=== PATIENT | female | born 1990 | race Caucasian/White ===

== ENCOUNTER 2017-05-09 09:59 | Inpatient (IN) | payer OTHER ==
[2017-05-09 11:22] LABS: ADD UMIC YES; UR ASCORBIC ACID NEGATIVE (NEGATIVE); UR BACTERIA FEW /HPF (NONE SEEN); UR BILIRUBIN (Dip) NEGATIVE (NEGATIVE); UR BLOOD (Dip) NEGATIVE (NEGATIVE); UR CLARITY CLOUDY (CLEAR); UR COLOR YELLOW (YELLOW); UR GLUCOSE (Dip) NEGATIVE (NEGATIVE); UR KETONES (Dip) NEGATIVE (NEGATIVE); UR LEUKOCYTE ESTERASE (Dip) 2+ Leu/ul (NEGATIVE); UR NITRITE (Dip) NEGATIVE (NEGATIVE); UR RBC 1 /HPF (0-5); UR SPECIFIC GRAVITY (Dip) 1.017 (1.003-1.030); UR SQUAMOUS EPITHELIAL CELL MANY /HPF (FEW); UR TOTAL PROTEIN (Dip) 1+ mg/dl (NEGATIVE); UR UROBILINOGEN (Dip) NEGATIVE (NEGATIVE); UR WBC 9 /HPF (0-5)
[2017-05-09] MEDS: BETAMET NA PHOS/AC(6 MG/ML) 5ML INJ IM (11:57)
[2017-05-09 12:00] LABS: INR 0.86; PROTIME 11.8 Sec (11.9-14.9); PT RATIO 0.9
[2017-05-09 12:01] LABS: PARTIAL THROMBOPLASTIN TIME 27.5 Sec (25.0-35.0)
[2017-05-09 12:05] LABS: ALANINE AMINOTRANSFERASE 33 IU/L (13-69); ALBUMIN 3.9 g/dl (3.3-4.9); ALBUMIN/GLOBULIN RATIO 1.21; ALKALINE PHOSPHATASE 180 IU/L (42-121); ANION GAP 14 (8-16); ASPARTATE AMINO TRANSFERASE 23 IU/L (15-46); BLOOD UREA NITROGEN 17 mg/dl (7-20); CALCIUM 9.6 mg/dl (8.4-10.2); CARBON DIOXIDE 23 mmol/L (21-31); CHLORIDE 108 mmol/L (97-110); CREATININE 0.69 mg/dl (0.44-1.00); GLUCOSE 79 mg/dl (70-220); POTASSIUM 4.3 mmol/L (3.5-5.1); SODIUM 141 mmol/L (135-144); TOTAL PROTEIN 7.1 g/dl (6.1-8.1); URIC ACID 5.9 mg/dl (3.1-7.9)
[2017-05-09 12:27] LABS: ADD MAN DIFF? NO
[2017-05-09 12:32] LABS: BASOPHILS % 0.3 % (0.0-2.0); EOSINOPHILS # 0.3 10^3/ul (0.0-0.5); EOSINOPHILS % 2.5 % (0.0-7.0); HEMATOCRIT 36.4 % (37.0-47.0); HEMOGLOBIN 12.1 g/dl (12.0-16.0); LYMPHOCYTES # 1.8 10^3/ul (0.8-2.9); LYMPHOCYTES % 18.4 % (15.0-51.0); MEAN CORPUSCULAR HEMOGLOBIN 30.6 pg (29.0-33.0); MEAN CORPUSCULAR HGB CONC 33.2 g/dl (32.0-37.0); MEAN CORPUSCULAR VOLUME 91.9 fl (82.0-101.0); MEAN PLATELET VOLUME 10.5 fl (7.4-10.4); MONOCYTE # 0.6 10^3/ul (0.3-0.9); MONOCYTES % 6.1 % (0.0-11.0); NEUTROPHIL # 7.3 10^3/ul (1.6-7.5); NEUTROPHILS % 72.3 % (39.0-77.0); PLATELET COUNT 231 10^3/UL (140-415); RED BLOOD COUNT 3.96 10^6/ul (4.20-5.40)
[2017-05-09] MEDS: MAGNESIUM SULFATE 4 GM/100 ML 100 ML IV (13:58)
[2017-05-09] MEDS: MAGNESIUM SULFATE 20 GM/500 ML 500 ML IV (14:12)
[2017-05-09] MEDS: LACTATED RINGER'S 1,000 ML IV ×2 (14:13→23:21)
[2017-05-09] MEDS ORDERED: CA GLUCONATE (GM) 10% 10ML INJ IV (21:30)
[2017-05-10 00:23] LABS: HEPATITIS B SURFACE ANTIGEN NEGATIVE (NEGATIVE)
[2017-05-10] MEDS: MAGNESIUM SULFATE 20 GM/500 ML 500 ML IV ×3 (00:33→22:34)
[2017-05-10 01:11] LABS: MAGNESIUM 5.9 mg/dl (1.7-2.5)
[2017-05-10 10:07] LABS: MAGNESIUM 6.7 mg/dl (1.7-2.5)
[2017-05-10] MEDS: LACTATED RINGER'S 1,000 ML IV (11:34)
[2017-05-10] MEDS: BETAMET NA PHOS/AC(6 MG/ML) 5ML INJ IM (12:05)
[2017-05-10 13:11] LABS: MAGNESIUM 6.5 mg/dl (1.7-2.5)
[2017-05-10 18:24] LABS: COLLECTION PERIOD 24 hrs
[2017-05-10 18:43] LABS: VOLUME 3975 mls
[2017-05-10 18:46] LABS: CREATININE,URINE RANDOM 36.72 mg/dl (20-320)
[2017-05-10 18:47] LABS: COLLECTION PERIOD 24 hrs; CREATININE CLEARANCE 146.9 mls/min (84.0-162.0); SCRET 0.69 mg/dl (0.44-1.00); VOLUME 3975 ml/24hrs
[2017-05-10 19:12] LABS: MAGNESIUM 6.9 mg/dl (1.7-2.5)
[2017-05-11] MEDS: LACTATED RINGER'S 1,000 ML IV ×5 (00:46→21:03)
[2017-05-11 01:12] LABS: MAGNESIUM 7.1 mg/dl (1.7-2.5)
[2017-05-11] MEDS ORDERED: MAGNESIUM SULFATE 20 GM/500 ML 500 ML IV (01:26)
[2017-05-11 06:42] LABS: ADD MAN DIFF? NO
[2017-05-11 06:53] LABS: BASOPHILS % 0.1 % (0.0-2.0); HEMATOCRIT 33.7 % (37.0-47.0); HEMOGLOBIN 11.2 g/dl (12.0-16.0); LYMPHOCYTES # 1.5 10^3/ul (0.8-2.9); LYMPHOCYTES % 15.3 % (15.0-51.0); MEAN CORPUSCULAR HEMOGLOBIN 30.2 pg (29.0-33.0); MEAN CORPUSCULAR HGB CONC 33.2 g/dl (32.0-37.0); MEAN CORPUSCULAR VOLUME 90.8 fl (82.0-101.0); MONOCYTE # 0.5 10^3/ul (0.3-0.9); MONOCYTES % 5.1 % (0.0-11.0); NEUTROPHIL # 7.7 10^3/ul (1.6-7.5); NEUTROPHILS % 78.9 % (39.0-77.0); PLATELET COUNT 245 10^3/UL (140-415); RED BLOOD COUNT 3.71 10^6/ul (4.20-5.40); RED CELL DISTRIBUTION WIDTH 13.4 % (11.5-14.5)
[2017-05-11 06:53] LABS: WHITE BLOOD COUNT 9.8 10^3/ul (4.8-10.8)
[2017-05-11 07:23] LABS: MAGNESIUM 7.1 mg/dl (1.7-2.5)
[2017-05-11 07:28] LABS: ALANINE AMINOTRANSFERASE 51 IU/L (13-69); ALBUMIN 3.5 g/dl (3.3-4.9); ALBUMIN/GLOBULIN RATIO 1.02; ALKALINE PHOSPHATASE 186 IU/L (42-121); ANION GAP 12 (8-16); ASPARTATE AMINO TRANSFERASE 38 IU/L (15-46); BLOOD UREA NITROGEN 14 mg/dl (7-20); CARBON DIOXIDE 22 mmol/L (21-31); CHLORIDE 106 mmol/L (97-110); CREATININE 0.68 mg/dl (0.44-1.00); GLUCOSE 123 mg/dl (70-220); SODIUM 136 mmol/L (135-144); TOTAL PROTEIN 6.9 g/dl (6.1-8.1)
[2017-05-11 07:47] LABS: HEPATITIS B SURFACE ANTIGEN NEGATIVE (NEGATIVE)
[2017-05-11] MEDS ORDERED: METHYLERGONOVINE 0.2 MG INJ IM ×2 (10:30→23:00)
[2017-05-11] MEDS ORDERED: OXYTOCIN 30 UNITS/LR 500 ML IV ×2 (10:30→23:00)
[2017-05-11] MEDS ORDERED: BUTORPHANOL 2 MG INJ IV (10:30)
[2017-05-11] MEDS ORDERED: MISOPROSTOL 200 MCG TAB PR ×2 (10:30→23:00)
[2017-05-11] MEDS ORDERED: HYDROCODONE/APAP (5/325) TAB PO (10:30)
[2017-05-11] MEDS ORDERED: LIDOCAINE 1% (MPF) 30 ML INJ INJ (10:30)
[2017-05-11] MEDS ORDERED: IBUPROFEN 600 MG TAB PO (10:30)
[2017-05-11] MEDS: AMPICILLIN 2 GM/NS (PMX) 100 ML IV (11:16)
[2017-05-11 11:42] LABS: INR 0.92; PROTIME 12.4 Sec (11.9-14.9)
[2017-05-11 11:43] LABS: PARTIAL THROMBOPLASTIN TIME 24.6 Sec (25.0-35.0)
[2017-05-11] MEDS: BETAMET NA PHOS/AC(6 MG/ML) 5ML INJ IM (12:00)
[2017-05-11] MEDS: OXYTOCIN 30 UNITS/LR 500 ML IV ×4 (12:18→22:57)
[2017-05-11] MEDS: AMPICILLIN 1 GM/NS (PMX) 50 ML IV ×3 (14:51→22:30)
[2017-05-11] MEDS: CITRIC ACID/SODIUM CITRATE 15 ML CUP PO (19:09)
[2017-05-11] MEDS ORDERED: ONDANSETRON 4 MG INJ (19:17)
[2017-05-11] MEDS ORDERED: KETOROLAC 30 MG INJ (19:17)
[2017-05-11] MEDS ORDERED: morphine SULFATE/PF (10 MG/10 ML) INJ (19:17)
[2017-05-11] MEDS ORDERED: GLYCOPYRROLATE 0.4 MG INJ (19:17)
[2017-05-11] MEDS ORDERED: METOCLOPRAMIDE 10 MG INJ (19:18)
[2017-05-11] MEDS ORDERED: FENTAnyl 50 MCG/ML VIAL (20:00)
[2017-05-11] MEDS ORDERED: PROPOFOL 20 ML (20:18)
[2017-05-11] MEDS ORDERED: LIDOCAINE 2% (SDV) 5 ML INJ (20:25)
[2017-05-11] MEDS: CARBOPROST 250 MCG INJ IM (21:04)
[2017-05-11] MEDS: CEFAZOLIN 2 GM/50 ML (PMX) 50 ML IV (21:04)
[2017-05-11] MEDS ORDERED: morphine 2 MG INJ IV ×3 (21:30)
[2017-05-11] MEDS ORDERED: NALOXONE (0.4 MG/ML) INJ IV (21:30)
[2017-05-11] MEDS ORDERED: morphine (1 MG/ML) 10ML SYRINGE IV ×3 (21:30)
[2017-05-11] MEDS ORDERED: ONDANSETRON 4 MG INJ IV ×2 (21:30)
[2017-05-11] MEDS ORDERED: DIPHENHYDRAMINE 50 MG INJ IV (21:30)
[2017-05-11] MEDS ORDERED: CARBOPROST 250 MCG INJ IM (23:00)
[2017-05-11] MEDS ORDERED: NA PHOSPHATE/BIPHOS 133 ML ENEMA PR (23:00)
[2017-05-11] MEDS ORDERED: NACL 0.9% 3 ML SYG IV (23:00)
[2017-05-12] MEDS: KETOROLAC 30 MG INJ IV (04:26)
[2017-05-12] MEDS: LACTATED RINGER'S 1,000 ML IV ×2 (05:29→22:57)
[2017-05-12] MEDS ORDERED: LACTATED RINGER'S 500 ML IV (10:30)
[2017-05-12 13:55] LABS: ADD MAN DIFF? NO
[2017-05-12 13:56] LABS: BASOPHILS % 0.2 % (0.0-2.0); HEMATOCRIT 28.9 % (37.0-47.0); HEMOGLOBIN 9.4 g/dl (12.0-16.0); LYMPHOCYTES # 2.2 10^3/ul (0.8-2.9); LYMPHOCYTES % 20.1 % (15.0-51.0); MEAN CORPUSCULAR HEMOGLOBIN 30.4 pg (29.0-33.0); MEAN CORPUSCULAR HGB CONC 32.5 g/dl (32.0-37.0); MEAN CORPUSCULAR VOLUME 93.5 fl (82.0-101.0); MEAN PLATELET VOLUME 9.3 fl (7.4-10.4); MONOCYTE # 0.7 10^3/ul (0.3-0.9); MONOCYTES % 6.8 % (0.0-11.0); NEUTROPHIL # 7.8 10^3/ul (1.6-7.5); NEUTROPHILS % 72.6 % (39.0-77.0); PLATELET COUNT 171 10^3/UL (140-415); RED BLOOD COUNT 3.09 10^6/ul (4.20-5.40); RED CELL DISTRIBUTION WIDTH 13.4 % (11.5-14.5)
[2017-05-12 13:56] LABS: WHITE BLOOD COUNT 10.7 10^3/ul (4.8-10.8)
[2017-05-12 17:30] LABS: RAPID PLASMA REAGIN NONREACTIVE (NR)
[2017-05-12] MEDS: HYDROCODONE/APAP (5/325) TAB PO (20:32)
[2017-05-12] MEDS: IBUPROFEN 800 MG TAB PO (22:00)
[2017-05-13] MEDS: HYDROCODONE/APAP (5/325) TAB PO ×2 (03:21→11:33)
[2017-05-13] MEDS: IBUPROFEN 800 MG TAB PO ×3 (05:46→22:00)
[2017-05-13] MEDS: LANOLIN 7 GM TUBE TOP (10:00)
[2017-05-14] MEDS: IBUPROFEN 800 MG TAB PO ×2 (05:36→14:04)
[2017-05-14] MEDS: DIPHTH/TET/ACEL PERTUSS (ADULT) 0.5 ML VIAL IM* (07:26)
[2017-05-14] MEDS: MEASLES,MUMPS,RUBELLA VACCINE INJ SC* (09:17)
[2017-05-14] MEDS: LANOLIN 7 GM TUBE TOP (11:38)
== END 2017-05-14 17:15 | disposition home or self-care (01) | DRG 765 ==
LOC: OBT 09:59 → L-D 09:59 → OBT 12:20 → PP1 05-11 23:35 → L-D 12:35
PROC: 10D00Z1 Extraction of Products of Conception, Low, Open Approach (ICD-10-PCS; principal; 2017-05-11)
DX: O13.3 Gestational [pregnancy-induced] hypertension without significant proteinuria, third trimester (principal); O60.13X0 Preterm labor second trimester with preterm delivery third trimester, not applicable or unspecified; Z37.0 Single live birth; Z3A.34 34 weeks gestation of pregnancy
CPT/HCPCS: 76815; 76818; 80053; 81001; 82575; 83735; 84156; 84560; 85025; 85384; 85610; 85730; 86592; 86850; 86900; 86901; 87340; 88307; 94760; 99464